=== PATIENT | female | born 1990 | race Hispanic/Latino ===

== ENCOUNTER 2021-09-30 12:14 | Day surgery (SDC) | payer OTHER ==
[2021-09-30] MEDS ORDERED: hydrALAZINE 20 MG/ML VIAL SLOW IVP PRN (14:03)
[2021-09-30] MEDS ORDERED: Lactated Ringer's 1,000 ML IV SCH (14:15)
== END 2021-09-30 16:39 | disposition home or self-care (01) ==
LOC: CSHLD/OP 12:14
PROVIDERS: ATTEND Student in an Organized Health Care Education/Training Program
DX: O46.93 Antepartum hemorrhage, unspecified, third trimester (principal); Z3A.33 33 weeks gestation of pregnancy
CPT/HCPCS: 76816; 96360; 99283